=== PATIENT | male | born 1945 | race Caucasian/White ===

== ENCOUNTER 2022-11-11 15:31 | Inpatient (IN) | payer MEDICARE, MEDICAID ==
[~2022-11-11] VITALS: Ht 167.6 cm; Wt 98.9 kg
[2022-11-11] MEDS ORDERED: TRAZ-257 PO (15:57)
[2022-11-11] MEDS ORDERED: ALEN70TA80 PO (15:57)
[2022-11-11] MEDS ORDERED: SIMV-46 PO (15:57)
[2022-11-11] MEDS ORDERED: CALC600T35 PO (15:57)
[2022-11-11] MEDS ORDERED: DOCU100C36 PO (15:57)
[2022-11-11] MEDS ORDERED: RISP1TAB97 PO (15:57)
[2022-11-11 16:39] LABS: ABG BASE EXCESS 3.7 mmol/L; ABG HCO3 29.5 mmol/L; ABG PCO2 48.9 mmHg (35.0-45.0); ABG PH 7.398 (7.350-7.450); ABG PO2 71.7 mmHg (75.0-100.0); ABG SITE LEFT RADIAL; ABG TOTAL HEMOGLOBIN 13.9 G/dL (13.5-18.0); COHb 1.2 % (0.5-1.5); MetHb 0.1 % (0.0-1.5); O2Hb 93.5 % (94.0-97.0); VENT MODE ROOM AIR
[2022-11-11 17:05] LABS: BASOPHILS # (AUTO) 0.1 K/UL (0.0-0.2); BASOPHILS % (AUTO) 0.7 % (0.0-2.0); EOSINOPHILS # (AUTO) 0.7 K/uL (0.0-0.7); EOSINOPHILS % (AUTO) 9.2 % (0.0-7.0); HEMATOCRIT 38.2 % (36.7-47.1); LYMPHOCYTES # (AUTO) 1.3 K/uL (0.8-4.8); LYMPHOCYTES % (AUTO) 16.8 % (20.5-51.5); MEAN CORPUSCULAR HEMOGLOBIN 29.7 uug (23.8-33.4); MEAN CORPUSCULAR HGB CONC 34 g/dL (32.5-36.3); MEAN CORPUSCULAR VOLUME 86.9 fL (73.0-96.2); MONOCYTES # (AUTO) 0.7 K/uL (0.1-1.30); MONOCYTES % (AUTO) 9.2 % (0.0-11.0); NEUTROPHILS # (AUTO) 4.8 K/uL (1.8-8.9); NEUTROPHILS % (AUTO) 64.1 % (38.5-71.5); PLATELET COUNT (AUTO) 318 K/uL (152-348); RED BLOOD CELL COUNT(AUTO) 4.39 MIL/uL (4.06-5.63); RED CELL DISTRIBUTION WIDTH 14.4 % (12.1-16.2); WHITE BLOOD COUNT (AUTO) 7.5 K/uL (3.6-10.2)
[2022-11-11 17:12] LABS: *AMPHETAMINE, URINE NEGATIVE (NEGATIVE); *BARBITURATE, URINE NEGATIVE (NEGATIVE); *BENZODIAZEPINE, URINE NEGATIVE (NEGATIVE); *CANNABINOID, URINE NEGATIVE (NEGATIVE); *COCCAINE, URINE NEGATIVE (NEGATIVE); *OPIATE, URINE NEGATIVE (NEGATIVE); *PHENCYCLIDINE SCREEN,URINE NEGATIVE (NEGATIVE); FENTANYL, URINE NEGATIVE (NEGATIVE)
[2022-11-11 17:16] LABS: DIFFERENTIAL COMMENT 1
[2022-11-11 17:17] LABS: AMMONIA < 10 umol/L (11-32); CALCIUM 9.7 mg/dL (8.5-10.1); CARBON DIOXIDE 31 mmol/L (21-32); CHLORIDE 99 mmol/L (98-107); CREATININE 1.1 mg/dL (0.6-1.3); GLUCOSE 164 mg/dL (74-106); POTASSIUM 4.2 mmol/L (3.5-5.1); SODIUM SERUM 133 mmol/L (136-145); UREA NITROGEN, BLOOD 23 mg/dL (7-18)
[2022-11-11 17:25] LABS: ETHANOL < 3 MG/DL (0-10)
[2022-11-11 17:27] LABS: ALANINE AMINOTRANSFERASE 32 U/L (16-63); ALBUMIN 2.9 g/dL (3.4-5.0); ALKALINE PHOSPHATASE 74 U/L (50-136); ASPARTATE AMINOTRANSFERASE 9 U/L (15-37); BILIRUBIN,DIRECT < 0.1 mg/dL (0.0-0.2); BILIRUBIN,TOTAL 0.1 mg/dL (0.2-1.0)
[2022-11-11 17:28] LABS: ACETAMINOPHEN < 2.0 ug/mL (10-30)
[2022-11-11 17:30] LABS: THYROID STIMULATING HORMONE 1.937 mIU/mL (0.358-3.740)
[2022-11-11 17:39] LABS: *BILIRUBIN,URIN NEGATIVE (NEGATIVE); *BLOOD, URINE 1+ (NEGATIVE); *CLARITY,URINE CLEAR (CLEAR); *COLOR,URINE YELLOW (YELLOW); *KETONES,URINE NEGATIVE (NEGATIVE); *PROTEIN,URINE NEGATIVE (NEGATIVE); *UROBILINOGEN,URINE 0.2 E.U./dl (NORMAL); LEUKOCYTE ESTERASE ,URINE NEGATIVE (NEGATIVE); NITRITE, URINE NEGATIVE (NEGATIVE); PH,URINE 5.5 (5.0-8.0); UGLUCOSE NEGATIVE (NEGATIVE)
[2022-11-11 17:40] LABS: RBC,URINE 0-3 /HPF (0-3); WBC,URINE 0-3 /HPF (0-3)
[2022-11-11] MEDS ORDERED: DEXTROSE 50% 50 ML DISP.SYRIN IV PRN (18:00)
[2022-11-11] MEDS ORDERED: REMEDY ESSENTIAL ZINC PASTE 113 GM TP PRN (18:00)
[2022-11-11] MEDS ORDERED: IV NS 1000 ML 1,000 ML IV SCH (18:00)
[2022-11-11] MEDS ORDERED: ONDANSETRON 4 MG/2 ML VIAL IV PRN (18:00)
[2022-11-11] MEDS ORDERED: ACETAMINOPHEN 325 MG TABLET PO PRN (18:00)
[2022-11-11] MEDS ORDERED: MAGNESIUM HYDROXIDE 30 ML LIQUID UDC PO PRN (18:00)
[2022-11-11] MEDS ORDERED: CLONIDINE HCL 0.1 MG TABLET PO PRN (18:15)
[2022-11-11] MEDS: BLOOD SUGAR DIAGNOSTIC 1 EACH STRIP VI SCH (22:21)
[2022-11-12 04:00] VITALS: BP 127/66; TEMP 98.5; O2SAT 94
[2022-11-12] MEDS: IV NS 1000 ML 1,000 ML IV PRN (06:29)
[2022-11-12] MEDS: BLOOD SUGAR DIAGNOSTIC 1 EACH STRIP VI SCH ×4 (06:34→21:30)
[2022-11-12 06:57] LABS: BASOPHILS % (AUTO) 0.5 % (0.0-2.0); EOSINOPHILS # (AUTO) 0.8 K/uL (0.0-0.7); HEMATOCRIT 38.6 % (36.7-47.1); HEMOGLOBIN 13.3 g/dL (12.5-16.3); LYMPHOCYTES # (AUTO) 1.7 K/uL (0.8-4.8); LYMPHOCYTES % (AUTO) 18.9 % (20.5-51.5); MEAN CORPUSCULAR HEMOGLOBIN 29.8 uug (23.8-33.4); MEAN CORPUSCULAR HGB CONC 34 g/dL (32.5-36.3); MEAN CORPUSCULAR VOLUME 86.9 fL (73.0-96.2); MONOCYTES # (AUTO) 0.8 K/uL (0.1-1.30); MONOCYTES % (AUTO) 8.6 % (0.0-11.0); NEUTROPHILS # (AUTO) 5.8 K/uL (1.8-8.9); PLATELET COUNT (AUTO) 348 K/uL (152-348); RED BLOOD CELL COUNT(AUTO) 4.45 MIL/uL (4.06-5.63); RED CELL DISTRIBUTION WIDTH 14.7 % (12.1-16.2); WHITE BLOOD COUNT (AUTO) 9.2 K/uL (3.6-10.2)
[2022-11-12 07:09] LABS: CALCIUM 9.3 mg/dL (8.5-10.1); CARBON DIOXIDE 29 mmol/L (21-32); CHLORIDE 100 mmol/L (98-107); CREATININE 1.1 mg/dL (0.6-1.3); GLUCOSE 123 mg/dL (74-106); MAGNESIUM 1.7 mg/dL (1.8-2.4); PHOSPHOROUS 3.7 mg/dL (2.5-4.9); POTASSIUM 4.5 mmol/L (3.5-5.1); SODIUM SERUM 133 mmol/L (136-145); UREA NITROGEN, BLOOD 24 mg/dL (7-18)
[2022-11-12 07:24] LABS: DIFFERENTIAL COMMENT 1
[2022-11-12 08:00] VITALS: BP 143/80; TEMP 98; O2SAT 96
[2022-11-12] MEDS ORDERED: MAGNESIUM OXIDE 400 MG TABLET PO ONE (11:00)
[2022-11-12 11:30] VITALS: BP 120/75; TEMP 98.2; O2SAT 94
[2022-11-12] MEDS ORDERED: CHOL100062 PO (12:40)
[2022-11-12] MEDS ORDERED: BISA10SU61 RC (12:41)
[2022-11-12] MEDS ORDERED: NA P133E RC (12:43)
[2022-11-12] MEDS ORDERED: FLUT100D IH (12:43)
[2022-11-12] MEDS ORDERED: FLUO40CA8 PO (12:44)
[2022-11-12] MEDS ORDERED: MAGN400O6 PO (12:45)
[2022-11-12] MEDS ORDERED: GLUC1KIT IM (12:45)
[2022-11-12] MEDS ORDERED: METF-440 PO (12:45)
[2022-11-12] MEDS ORDERED: BLOO-360 IN (12:51)
[2022-11-12 16:11] VITALS: BP 137/97; TEMP 98.5; O2SAT 94
[2022-11-12] MEDS: INSULIN REGULAR, HUMAN 300 UNIT/3 ML VIAL SQ PRN (17:40)
[2022-11-12] MEDS: risperiDONE 1 MG TABLET PO SCH (17:41)
[2022-11-12 21:15] VITALS: BP 113/45; TEMP 98.8; O2SAT 94
[2022-11-12] MEDS: TRAZODONE 100 MG TABLET PO SCH (21:35)
[2022-11-12] MEDS: SIMVASTATIN 20 MG TABLET PO SCH (21:35)
[2022-11-12] MEDS: INSULIN REGULAR, HUMAN 300 UNITS/3 ML VIAL SQ PRN (21:37)
[2022-11-13 05:51] VITALS: BP 113/53; TEMP 95; O2SAT 95
[2022-11-13] MEDS: BLOOD SUGAR DIAGNOSTIC 1 EACH STRIP VI SCH ×4 (06:45→20:53)
[2022-11-13] MEDS: INSULIN REGULAR, HUMAN 300 UNIT/3 ML VIAL SQ PRN ×2 (07:59→16:53)
[2022-11-13 08:00] VITALS: BP 126/51; TEMP 98.5; O2SAT 100
[2022-11-13 08:06] LABS: BASOPHILS % (AUTO) 0.4 % (0.0-2.0); EOSINOPHILS # (AUTO) 0.7 K/uL (0.0-0.7); EOSINOPHILS % (AUTO) 9.4 % (0.0-7.0); HEMATOCRIT 36.3 % (36.7-47.1); HEMOGLOBIN 12.3 g/dL (12.5-16.3); LYMPHOCYTES # (AUTO) 1.2 K/uL (0.8-4.8); MEAN CORPUSCULAR HEMOGLOBIN 29.4 uug (23.8-33.4); MEAN CORPUSCULAR HGB CONC 34 g/dL (32.5-36.3); MEAN CORPUSCULAR VOLUME 86.8 fL (73.0-96.2); MONOCYTES # (AUTO) 0.7 K/uL (0.1-1.30); MONOCYTES % (AUTO) 8.9 % (0.0-11.0); NEUTROPHILS # (AUTO) 5.1 K/uL (1.8-8.9); NEUTROPHILS % (AUTO) 65.3 % (38.5-71.5); PLATELET COUNT (AUTO) 298 K/uL (152-348); RED BLOOD CELL COUNT(AUTO) 4.19 MIL/uL (4.06-5.63); RED CELL DISTRIBUTION WIDTH 14.5 % (12.1-16.2); WHITE BLOOD COUNT (AUTO) 7.8 K/uL (3.6-10.2)
[2022-11-13 08:31] LABS: CALCIUM 9.2 mg/dL (8.5-10.1); CARBON DIOXIDE 28 mmol/L (21-32); CHLORIDE 100 mmol/L (98-107); CREATININE 1.1 mg/dL (0.6-1.3); GLUCOSE 170 mg/dL (74-106); MAGNESIUM 1.9 mg/dL (1.8-2.4); POTASSIUM 4.3 mmol/L (3.5-5.1); SODIUM SERUM 135 mmol/L (136-145); UREA NITROGEN, BLOOD 20 mg/dL (7-18)
[2022-11-13] MEDS: risperiDONE 1 MG TABLET PO SCH ×2 (09:02→16:56)
[2022-11-13] MEDS: CALCIUM CARBONATE 600 MG TABLET PO SCH (09:02)
[2022-11-13] MEDS: DOCUSATE SODIUM 100 MG CAPSULE PO SCH (09:02)
[2022-11-13 11:55] VITALS: BP 118/56; TEMP 98.1; O2SAT 94
[2022-11-13 16:00] VITALS: BP 102/51; TEMP 98; O2SAT 94
[2022-11-13] MEDS ORDERED: BISACODYL 10 MG SUPP.RECT RC PRN (16:45)
[2022-11-13] MEDS ORDERED: FLEET ENEMA 133 ML BOTTLE RC PRN (16:45)
[2022-11-13] MEDS ORDERED: MAGNESIUM HYDROXIDE 30 ML LIQUID UDC PO PRN (16:45)
[2022-11-13] MEDS: CHOLECALCIFEROL 1,000 UNIT TABLET PO SCH (17:16)
[2022-11-13] MEDS: IV NS 1000 ML 1,000 ML IV PRN (17:25)
[2022-11-13 20:00] VITALS: BP 108/54; TEMP 98; O2SAT 93
[2022-11-13] MEDS: TRAZODONE 100 MG TABLET PO SCH (20:48)
[2022-11-13] MEDS: SIMVASTATIN 20 MG TABLET PO SCH (20:48)
[2022-11-13] MEDS: INSULIN REGULAR, HUMAN 300 UNITS/3 ML VIAL SQ PRN (20:55)
[2022-11-14] VITALS: BP 109/81; TEMP 98; O2SAT 94
[2022-11-14 04:00] VITALS: BP 111/55; TEMP 98.2; O2SAT 94
[2022-11-14] MEDS: BLOOD SUGAR DIAGNOSTIC 1 EACH STRIP VI SCH ×2 (06:54→12:13)
[2022-11-14] MEDS ORDERED: HOME MED MISCELLANEOUS XX SCH (07:15)
[2022-11-14] MEDS ORDERED: FLUOXETINE HCL 20 MG CAPSULE PO SCH ×2 (09:00)
[2022-11-14] MEDS: DOCUSATE SODIUM 100 MG CAPSULE PO SCH (09:41)
[2022-11-14] MEDS: CALCIUM CARBONATE 600 MG TABLET PO SCH (09:41)
[2022-11-14] MEDS: CHOLECALCIFEROL 1,000 UNIT TABLET PO SCH (09:41)
[2022-11-14] MEDS: risperiDONE 1 MG TABLET PO SCH (09:41)
[2022-11-18] MEDS ORDERED: ALENDRONATE SODIUM 70 MG TABLET PO SCH (06:00)
== END 2022-11-14 13:45 | DRG 640 ==
LOC: ER 15:31 → TRANSITION 19:27 → MEDSURG3 11-12 00:16
PROVIDERS: ADMIT Internal Medicine; ATTEND Nurse Practitioner Acute Care
DX: E86.0 Dehydration (principal); G93.41 Metabolic encephalopathy; N17.0 Acute kidney failure with tubular necrosis; E44.0 Moderate protein-calorie malnutrition; E87.1 Hypo-osmolality and hyponatremia; Z20.822 Contact with and (suspected) exposure to COVID-19; E11.9 Type 2 diabetes mellitus without complications; E66.9 Obesity, unspecified; E78.5 Hyperlipidemia, unspecified; E86.1 Hypovolemia; E88.09 Other disorders of plasma-protein metabolism, not elsewhere classified; F25.9 Schizoaffective disorder, unspecified; F32.9 Major depressive disorder, single episode, unspecified; J44.9 Chronic obstructive pulmonary disease, unspecified; L21.9 Seborrheic dermatitis, unspecified; M19.90 Unspecified osteoarthritis, unspecified site; R62.7 Adult failure to thrive; Z79.84 Long term (current) use of oral hypoglycemic drugs; F29 Unspecified psychosis not due to a substance or known physiological condition; Z68.35 Body mass index [BMI] 35.0-35.9, adult; R53.1 Weakness
CPT/HCPCS: 36415; 36600; 70450; 71045; 83605; 83735; 84100; 84443; 84484; 85025; 85730; 87040; 93005; A4663; G0378; G0480; J1815; J7040